=== PATIENT | male | born 1950 | race Caucasian/White ===

== ENCOUNTER 2022-08-29 02:42 | Inpatient (IN) | payer MEDICARE ==
[~2022-08-29] VITALS: Ht 172.7 cm; Wt 82.1 kg
[2022-08-29] MEDS ORDERED: HALOPERIDOL LACTATE 5 MG/1 ML VIAL ONE (02:56)
[2022-08-29] MEDS ORDERED: LORAZEPAM 2 MG/1 ML VIAL ONE (02:56)
[2022-08-29] MEDS ORDERED: diphenhydrAMINE 50 MG/1 ML VIAL ONE (02:56)
[2022-08-29] MEDS ORDERED: POTASSIUM BICARBONATE/CIT AC 25 MEQ TABLET.EFF PO ONE (03:00)
[2022-08-29] MEDS ORDERED: LORAZEPAM 2 MG/1 ML VIAL IM ONE ×2 (03:00→13:45)
[2022-08-29] MEDS ORDERED: HALOPERIDOL LACTATE 5 MG/1 ML VIAL IM ONE (03:00)
[2022-08-29] MEDS ORDERED: diphenhydrAMINE 50 MG/1 ML VIAL IM ONE (03:00)
[2022-08-29] MEDS ORDERED: POTASSIUM BICARBONATE/CIT AC 25 MEQ TABLET.EFF ONE (03:05)
--- NOTE | 2022-08-29 03:09 | NUR ---
Patient is agitated and verbally abusive towards staff. MD notified.
--- NOTE | 2022-08-29 03:16 | NUR ---
Dr. Gil in room examing patient.
[2022-08-29 03:27] LABS: CREATININE 0.9 mg/dL (0.6-1.3)
[2022-08-29] MEDS ORDERED: ACET1TAB23 PO (03:30)
[2022-08-29] MEDS ORDERED: ALFU10TA PO (03:30)
--- NOTE | 2022-08-29 03:35 | NUR ---
Patient has been medically cleared by Dr Gil
--- NOTE | 2022-08-29 03:41 | NUR ---
Called [facility] and gave report to Alfredo JASSO.
[2022-08-29 04:00] VITALS: BP 154/78
--- NOTE | 2022-08-29 04:00 | NUR ---
Patient was transferred via gurney. Alfredo JASSO made aware of patient's arrival.
[2022-08-29] MEDS ORDERED: MAGNESIUM HYDROXIDE 30 ML LIQUID UDC PO PRN (04:45)
[2022-08-29] MEDS ORDERED: TEMAZEPAM 7.5 MG CAPSULE PO PRN (04:45)
[2022-08-29] MEDS ORDERED: BLOOD SUGAR DIAGNOSTIC 1 EACH STRIP VI ONE (04:45)
[2022-08-29] MEDS ORDERED: CLONAZEPAM 0.5 MG TABLET PO PRN (04:45)
[2022-08-29] MEDS ORDERED: ACETAMINOPHEN 325 MG TABLET PO PRN (05:00)
--- NOTE | 2022-08-29 05:00 | NUR ---
GPS: Admitted to unit earlier around 0400 a 72 yr.old male to be under the care of /Dr. Dobbins DATA ANALYTICS SPECIALIST. Pt.is on a 72 hour hold for GD/DTO. He was agitated,aggressive,labile and delusional,per hold. Pt.received IM's at the E.R. for such behavior. When arrived on the unit pt.was much calmer and able to follow simple directions although still somewhat uncooperative and unable to participate during interview process. Body check done/personal belongings list inventoried. Unit rules explained. Pt's rights handbook/advisement given. Safe environment was provided. Re-directed and re-assured prn. Will monitor behavior.
[2022-08-29] MEDS ORDERED: buPROPion 100 MG TABLET PO SCH (10:15)
[2022-08-29] MEDS ORDERED: DIVALPROEX 125 MG TABLET.DR PO SCH (10:15)
[2022-08-29] MEDS: DIVALPROEX SPRINKLE 125 MG CAP.SPRINK PO SCH ×3 (10:30→21:13)
[2022-08-29] MEDS ORDERED: hydrALAZINE HCL 25 MG TABLET PO PRN (10:45)
[2022-08-29] MEDS ORDERED: ACETAMINOPHEN/CODEINE 300-30 MG TABLET PO SCH (12:00)
[2022-08-29] MEDS ORDERED: OLANZAPINE 10 MG VIAL IM ONE (13:45)
[2022-08-29 14:15] VITALS: BP 145/77
--- NOTE | 2022-08-29 14:34 | NUR ---
Patient became agitated, aggressive, striking out at others, combative, yelling and threatening physical harm to others and environment which could lead to injury. Psychiatrist was called and ordered Zyprexa 2.5 mg IM and Ativan 1 mg IM. Security was called and six people were necessary to administer medication, but no force applied. Reassurance given. Fall and safety precautions implemented.
[2022-08-29 15:52] VITALS: BP 122/79
--- NOTE | 2022-08-29 19:04 | NUR ---
Pt is labile, easily irritable, guarded, uncooperative and grandiose effect. Pt is argumentative with staff and other patients. Pt was throwing roommates belongings on the floor and eating other patients food. Pt snaps fingers at staff when he needs something and calls staff members stupid.Pt was making derogatory comments toward staff "are you stupid?" "you stupid nigger". Reassurance and redirected given. Pt is not compliant with medication and uncooperative with care. safety measures put in place . Continue to monitor for safety and for behavioral escalation.
[2022-08-29 20:08] VITALS: BP 136/64
[2022-08-29] MEDS: ALFUZOSIN HCL 10 MG TAB.SR.24H PO SCH ×2 (21:00→21:13)
[2022-08-29] MEDS ORDERED: OLANZAPINE 2.5 MG TABLET PO SCH (21:00)
[2022-08-29] MEDS: OLANZAPINE 2.5 MG TABLET PO SCH ×2 (21:00→21:13)
--- NOTE | 2022-08-29 21:21 | NUR ---
Patient refused to take 2100 hour scheduled meds. After repeated attempts of their purpose and importance, pt still refused, stating for me to "get the F out of here!" became labile and verbally aggressive/abusive using foul language and refused to listen/be educated. Will continue monitor.
[2022-08-30] MEDS: OLANZAPINE 2.5 MG TABLET PO SCH ×2 (08:50→20:58)
[2022-08-30] MEDS: DIVALPROEX SPRINKLE 125 MG CAP.SPRINK PO SCH ×2 (08:50→20:57)
--- NOTE | 2022-08-30 09:59 | NUR ---
MERLENE Initial Discharge Note: Pt currently resides at [address] [place] [address] ([phone]). Pt stated he is alone and has no family. It is unclear if pt will return home alone. Pt is currently refusing to discuss his discharge plan. MERLENE will continue to work with pt and MD to ensure a safe and proper discharge plan.
[2022-08-30] MEDS: MAG HYDROX/AL HYDROX/SIMETH 30 ML LIQUID UDC PO PRN ×2 (11:34→16:57)
--- NOTE | 2022-08-30 14:00 | NUR ---
Gps/Bowling Pin Refinisher- Demanding he needs to have omeprazole po, claimed his stomach very acidic, was iven mylanta 30 ml,po earlier , claimed it helps but not a whole lot. Requesting omeprazole, Dr Lundy was called , informed, order received., explained to patient protonix 40 mg po order received, patient agreed to take
[2022-08-30] MEDS: PANTOPRAZOLE SODIUM 40 MG TABLET.DR PO SCH (14:29)
[2022-08-30] MEDS: ALFUZOSIN HCL 10 MG TAB.SR.24H PO SCH (20:57)
--- NOTE | 2022-08-31 05:21 | NUR ---
Pt is uncooperative with nursing care and not compliant with medications. when educated on the importance of taking his medications pt got agitated and argumentative. Reassurance and redirected. Pt got up in front of bathroom mirror and started yelling, when asked if he was ok pt stated. "leave me alone and get out of my room". Pt calmed down and went back to bed.safety measures put in place . Continue to monitor for safety and behavioral escalation.
[2022-08-31] MEDS: PANTOPRAZOLE SODIUM 40 MG TABLET.DR PO SCH (06:26)
[2022-08-31] MEDS: OLANZAPINE 2.5 MG TABLET PO SCH ×2 (08:46→21:00)
[2022-08-31] MEDS: DIVALPROEX SPRINKLE 125 MG CAP.SPRINK PO SCH ×2 (08:46→21:00)
--- NOTE | 2022-08-31 12:24 | NUR ---
GPS: Nursing Notes: Destructive Behavior To Others: Patient is awake and responding to his name, impaired judgment, believes that he is leaving today, AWOL risk, refusing to take his medications, stated "There is nothing wrong with me..I am healthy..", refusing to participate in therapeutic groups, gets easily irritable when question by staff, unable to formulate a viable plan for self care, no aggressive behavior noted, continue to monitor for safety, continue with treatment plan.
[2022-08-31] MEDS: ALFUZOSIN HCL 10 MG TAB.SR.24H PO SCH (21:00)
--- NOTE | 2022-09-01 02:13 | NUR ---
Received patient pacing up and down in the martínez. The patient refused VS and refused to take any medications. He is acting edgy and borderline aggressive. This patient was angry with the CARCASS WASHER and labile. Safety Stratiges are in place and continuing to monitor for behavior escalation and compliance. Paranoid statements noted. Sleep hours have been poor so far.
[2022-09-01] MEDS: PANTOPRAZOLE SODIUM 40 MG TABLET.DR PO SCH ×2 (06:32→07:45)
[2022-09-01] MEDS: DIVALPROEX SPRINKLE 125 MG CAP.SPRINK PO SCH ×2 (08:22→20:31)
[2022-09-01] MEDS: OLANZAPINE 2.5 MG TABLET PO SCH ×2 (08:22→20:31)
--- NOTE | 2022-09-01 10:04 | NUR ---
GPS: Nursing Notes: Riese Hearing Filed: Staff served patient with copy of Riese petition hearing. Explained Riese hearing to the patient, but got angry and throw the copy on the floor. Shouting "The doctor said no injections... I do not accept that..". Staff faxed R[place] petition to courts at . Placed Riese petition in psych section of chart. Also, staff notified the courts via [facility] portal regarding Riese petition.
--- NOTE | 2022-09-01 10:59 | NUR ---
GPS: Nursing Notes: Destructive Behavior To Others: Patient is awake and responding to his name, gets easily angry when redirected, poor anger management, refusing his psych. medications, believes that there is nothing wrong with him, when staff served him with copy of Riese petition, he got angry and shouted "The doctor said no injections..." Throw the Riese petition on the floor, unable to formulate a viable plan for self care, continue to monitor for safety, continue with treatment plan.
[2022-09-01] MEDS: ALFUZOSIN HCL 10 MG TAB.SR.24H PO SCH (20:31)
--- NOTE | 2022-09-01 23:34 | NUR ---
Patient refused medications and refused to have VS taken. Pacing up and down the martínez most of the night so far, responding to internal stimuli. Safety Stratiges are in place. Continuing to monitor this patient for labile moods, behavior escalation and compliance.
--- NOTE | 2022-09-02 05:13 | NUR ---
On several occasions during night, the patient was seen and heard responding to internal stimuli. Very animated at times. These episodes seem to be getting more frequent and louder. Poor sleep noted. This patient spent most of the night pacing the halls. Multiple attempts to provided a shower or medications were refused. Safety Stratiges are in place and continuing to monitor for impulsive behavior outbursts.
[2022-09-02] MEDS: PANTOPRAZOLE SODIUM 40 MG TABLET.DR PO SCH (06:02)
[2022-09-02] MEDS: OLANZAPINE 2.5 MG TABLET PO SCH ×2 (08:23→20:42)
[2022-09-02] MEDS: DIVALPROEX SPRINKLE 125 MG CAP.SPRINK PO SCH ×2 (08:23→20:41)
--- NOTE | 2022-09-02 11:28 | NUR ---
GPS: Nursing Notes: Destructive Behavior To Others: Patient is awake and responding to his name, continue to refuse his psych. medications, argumentative with Anival Graves NP, stated "You told me... I am leaving today.. Now..", gets easily irritable when redirected, stated "I am normal... There is nothing wrong with me..", refusing his medications, unable to formulate a viable plan for self care, continue to monitor for safety, continue with treatment plan.
[2022-09-02] MEDS: ALFUZOSIN HCL 10 MG TAB.SR.24H PO SCH (20:41)
[2022-09-03] MEDS: MAG HYDROX/AL HYDROX/SIMETH 30 ML LIQUID UDC PO PRN (01:25)
[2022-09-03] MEDS: PANTOPRAZOLE SODIUM 40 MG TABLET.DR PO SCH ×2 (06:44→07:26)
[2022-09-03] MEDS: OLANZAPINE 2.5 MG TABLET PO SCH ×2 (08:41→20:46)
[2022-09-03] MEDS: DIVALPROEX SPRINKLE 125 MG CAP.SPRINK PO SCH ×2 (08:41→20:45)
[2022-09-03] MEDS ORDERED: HALOPERIDOL LACTATE 5 MG/1 ML VIAL IM PRN (13:15)
--- NOTE | 2022-09-03 14:30 | NUR ---
Patient is riesed. Haldol 0.5 mg IM will be given, if patient refuses Zyprexa 2.5 mg PO BID.
[2022-09-03] MEDS: ALFUZOSIN HCL 10 MG TAB.SR.24H PO SCH (20:46)
--- NOTE | 2022-09-04 03:44 | NUR ---
GPS NOTES: Received in his room talking to himself, A&0x2, patient is labile. Patient refused oral Zypexa meds, patient turns aggressive and yelling at staff when informed that medication will be given via IM, security and 2 staff necessary to administer the HALDOL medication via IM safely. Tolerated well, patient sleeping intermittently this shift, no distress noted. Patient at some point wakes up, went to nursing station angry and yells at staff, set boundaries to patients behavior. All safety strategies in placed.
[2022-09-04] MEDS: PANTOPRAZOLE SODIUM 40 MG TABLET.DR PO SCH (06:07)
[2022-09-04] MEDS: OLANZAPINE 2.5 MG TABLET PO SCH ×2 (08:48→20:29)
[2022-09-04] MEDS: DIVALPROEX SPRINKLE 125 MG CAP.SPRINK PO SCH ×2 (08:48→20:28)
[2022-09-04] MEDS ORDERED: HALOPERIDOL LACTATE 5 MG/1 ML VIAL IM PRN (09:00)
--- NOTE | 2022-09-04 17:29 | NUR ---
Receive pt in room responding to internal stimuli. Pt is labile, easily irritable and argumentative when he does not get his way. Pt refused oral Zypexa medication. Pt is riesed and when informed that if he refuses Zyprexa , he gets a Haldol IM. Pt started yelling at staff and stated " i will not take anything and you can not give me an injection that is illegal and I will laura you you dumb bitch". Education provided on the importance of being compliant with medications. 4 staff necessary to administer the HALDOL medication via IM safely no force used. Tolerated well, no distress noted. Safety strategies in placed. Reassurance provided. Continue to monitor for safety and behavioral escalation . Continue with treatment plan.
[2022-09-04] MEDS: ALFUZOSIN HCL 10 MG TAB.SR.24H PO SCH (20:28)
--- NOTE | 2022-09-05 05:05 | NUR ---
GPS NOTES: Patient agrees to take his PO medications at this time, still presents with irritable mood, complaining about he was given IM shot "illegally" and causing him an adverse effect. Educated patient on the adverse effect of the medications. He is noted to be sleeping alot this shift. No distress noted. All safety strategies in placed.
[2022-09-05] MEDS: PANTOPRAZOLE SODIUM 40 MG TABLET.DR PO SCH (06:17)
[2022-09-05] MEDS: OLANZAPINE 2.5 MG TABLET PO SCH ×2 (08:46→20:23)
[2022-09-05] MEDS: DIVALPROEX SPRINKLE 125 MG CAP.SPRINK PO SCH ×3 (08:46→20:46)
--- NOTE | 2022-09-05 15:40 | NUR ---
Gps/Core Cutter And Reamer- Patient claimed he is supposed to leave today, informed patient there's no order for discharge, needed to talk to his Psychiatrist in am. Compliant with routine am meds.this am. but noted irritability , argumentative this pm, requesting to call his Psychiatrist right now that there will be no Psych. meds anymore. Instructed patient the need to talk to [facility] Psychiatrist , in am, came in rushing in the Nursing station pointing his finger at the staff as he was loud, reitirating his demand to check his medications records," no more Psych. meds. per patient.
--- NOTE | 2022-09-05 16:09 | NUR ---
Gps/Electrical Journeyman- Called Pattern And Chain Maker to assist staff, for irrate patient yelling , loud, difficulty redirecting patient , demanding to call the Doctor to discontinue his Psych. medications, patient will no listen to explanation, redirected patient back to his room
--- NOTE | 2022-09-05 16:20 | NUR ---
GPS Nursing Notes: Patient pacing up and ricardo hallway, making demands, "I want to leave now, I dont want to take anymore psych medications, I told my Psychiatrist this morning". Patient getting close to nurses face, pointing his finger to nurses faces, patient also screaming at staff, "call my doctor Now!!!". refuses to follow directions, does no comprehend criteria for discharge, continued to make verbal demands. As need it po anxiety anxiety offered medication, but patient continue to refused, also encourage patient to go to his room to relax, but refused. Patient was redirected multiple time with success. Called Psychiatrist Ativan 1 mg IM ordered received. Will continue to monitor. Fall and safety precaution implemented, emotional support provided.
[2022-09-05] MEDS ORDERED: LORAZEPAM 2 MG/1 ML VIAL IM ONE (16:27)
[2022-09-05 16:32] VITALS: BP 145/86
--- NOTE | 2022-09-05 16:53 | NUR ---
Gps//Marine Photographer- Patient requesting to call Thep MACHINE WORKER again to tell him that " mo more Psych med. for javier , informed patient to talk to Psychiatrist in am. but demanding to have him call again to let him know about his request.
[2022-09-05] MEDS ORDERED: HALOPERIDOL LACTATE 5 MG/1 ML VIAL IM PRN (17:09)
[2022-09-05] MEDS: BENZTROPINE MESYLATE 1 MG TABLET PO SCH ×2 (20:23→20:45)
[2022-09-05] MEDS: ALFUZOSIN HCL 10 MG TAB.SR.24H PO SCH ×2 (20:23→20:46)
[2022-09-05] MEDS ORDERED: BENZTROPINE MESYLATE 2 MG/2 ML AMPUL IM PRN (21:00)
[2022-09-06] MEDS: PANTOPRAZOLE SODIUM 40 MG TABLET.DR PO SCH (06:05)
--- NOTE | 2022-09-06 06:09 | NUR ---
GPS NOTES: Patient remains argumentative when it comes to compliance w/ his psych medication. He states that there is a letter from court that states he don't need to take any psych medications. Remind patient that he is on reised, as per court order. Patient is still with episode of anger and outburst when being educated on the importance of med-compliance. Patient agrees to take Zyprexa and Cogentin, refused Depakote. Patient sleeps better this shift. No distress noted. Frequent rounding for safety observed.
[2022-09-06] MEDS: DIVALPROEX SPRINKLE 125 MG CAP.SPRINK PO SCH ×2 (08:58→20:55)
[2022-09-06] MEDS: OLANZAPINE 2.5 MG TABLET PO SCH (08:58)
[2022-09-06] MEDS: BENZTROPINE MESYLATE 1 MG TABLET PO SCH ×2 (08:58→20:54)
[2022-09-06] MEDS ORDERED: OLANZAPINE 10 MG VIAL IM PRN (10:45)
--- NOTE | 2022-09-06 13:52 | NUR ---
Remains up in his winnie- chair for safety , fed self independently , yells from time ,compliant with medication .
[2022-09-06] MEDS: OLANZAPINE 5 MG TABLET PO SCH (20:48)
[2022-09-06] MEDS: ALFUZOSIN HCL 10 MG TAB.SR.24H PO SCH (20:55)
--- NOTE | 2022-09-07 04:16 | NUR ---
Received in room sitting talking to self. Pt is labile, easily irritable, uncooperative with care. Pt is argumentative at times when medications are given. Pt is seductive with medications and wont take all of his medications. Reassurance and redirected. Pt did not slept only 30 minutes and was pacing in his room for most of the night, going in and out of bathroom and constantly washing his hands. No aggressive behavior noted on this shift. safety measures put in place . Continue to monitor for safety and for behavioral escalation. Addendum: 09/07/22 at 0610 by JOSE LUIS WING LVN pt slept for 1 hour not 30 minutes
[2022-09-07] MEDS: PANTOPRAZOLE SODIUM 40 MG TABLET.DR PO SCH (06:01)
[2022-09-07] MEDS: OLANZAPINE 5 MG TABLET PO SCH ×2 (08:13→20:40)
[2022-09-07] MEDS: BENZTROPINE MESYLATE 1 MG TABLET PO SCH ×2 (08:14→20:40)
[2022-09-07] MEDS: DIVALPROEX SPRINKLE 125 MG CAP.SPRINK PO SCH ×2 (08:14→21:00)
--- NOTE | 2022-09-07 15:10 | NUR ---
Received patient stay in his room most of time , refused to attend in group activity , get irritable when care provided, argumentative when psychiatrist attempted to talk to him. compliant with medication ,will continue same treatment plan.
[2022-09-07] MEDS: ALFUZOSIN HCL 10 MG TAB.SR.24H PO SCH (21:00)
--- NOTE | 2022-09-08 05:01 | NUR ---
Pt seems more calm upon approach. is more compliant with medications but selective on what he takes. Pt did not slept and pace up an down the hallway , his room and the dinning room. PRN for sleeping offered but refused. Reassurance provided , safety measures in place. continue to monitor for safety, continue with treatment plan.
[2022-09-08] MEDS: PANTOPRAZOLE SODIUM 40 MG TABLET.DR PO SCH (06:03)
[2022-09-08] MEDS: OLANZAPINE 5 MG TABLET PO SCH ×2 (08:37→20:54)
[2022-09-08] MEDS: DIVALPROEX SPRINKLE 125 MG CAP.SPRINK PO SCH ×2 (08:37→21:00)
[2022-09-08] MEDS: BENZTROPINE MESYLATE 1 MG TABLET PO SCH ×2 (08:37→20:54)
--- NOTE | 2022-09-08 16:10 | NUR ---
patient stay in his room most of time , refused to attend in group activity , get irritable when care provided, argumentative when psychiatrist attempted to talk to him.poor insight and poor judgement compliant with medication ,will continue same treatment plan.
[2022-09-08] MEDS: ALFUZOSIN HCL 10 MG TAB.SR.24H PO SCH (21:00)
--- NOTE | 2022-09-09 03:14 | NUR ---
received pt last night ; pt appears to be pacing most of the time; took some meds only; education given; pt rested for a while then found to be awake and pacing in the hallway; rounding done constantly and will continue to monitor.
[2022-09-09] MEDS: PANTOPRAZOLE SODIUM 40 MG TABLET.DR PO SCH (06:02)
--- NOTE | 2022-09-09 07:00 | NUR ---
GPS Nursing noted: Patient is in his room, with no S/S of discomforts, flat affect. withdrawn. Fall and safety precautions. Will continue to monitor.
[2022-09-09] MEDS: BENZTROPINE MESYLATE 1 MG TABLET PO SCH ×2 (08:55→20:33)
[2022-09-09] MEDS: DIVALPROEX SPRINKLE 125 MG CAP.SPRINK PO SCH ×2 (08:55→20:33)
[2022-09-09] MEDS: OLANZAPINE 5 MG TABLET PO SCH ×2 (08:55→20:33)
[2022-09-09] MEDS: ALFUZOSIN HCL 10 MG TAB.SR.24H PO SCH (20:34)
--- NOTE | 2022-09-09 20:34 | NUR ---
Even after re-educating pt of these medications purpose and importance, this pt still refused taking them. They are: Depakote and Uroxatral @ 2100 hours.
[2022-09-10] MEDS: PANTOPRAZOLE SODIUM 40 MG TABLET.DR PO SCH (07:05)
[2022-09-10] MEDS: BENZTROPINE MESYLATE 1 MG TABLET PO SCH (08:31)
[2022-09-10] MEDS: OLANZAPINE 5 MG TABLET PO SCH (08:31)
[2022-09-10] MEDS: DIVALPROEX SPRINKLE 125 MG CAP.SPRINK PO SCH (08:33)
[2022-09-10 10:22] VITALS: BP 136/74
--- NOTE | 2022-09-10 10:35 | NUR ---
SW Discharge Note: Pt will be discharged with a bus pass at 11AM. MERLENE and DNP, Dr. Graves offered senior living facilities which pt refused. Pt is alert and oriented x4. Pt does not have any family contact. Pt stated he would like to be discharged on his own by bus pass to go get his car from [facility] [address] [place] [address] ([phone]). MERLENE spoke with Tea from parking enforcement at [facility] who stated pts car is there. Pt is aware and agreeable with discharge plan. Pt denies any suicidal or homicidal ideation. SW offered resources such as [facility] located at [facility] [place] [address] ([phone]) via teletherapy; [facility] for primary doctor located at [address], [address], [place] [address] ([phone]); [facility] [address], [address], [place] [address] and more. Pt refused all resources. Pt stated to this MERLENE and Dr. Graves that he is perfectly fine, does not need a psychiatrist and refused to provide pharmacy details. Pt presents with calm mood and congruent affect.
--- NOTE | 2022-09-10 11:40 | NUR ---
Pt will be discharged with a bus pass at 11AM. Patient A/O x 4, denies SI/HI/VH/AH, or pain. V/S WNLS, medication compliant. Patient belonging and valuable were accounted, patient signs belonging and valuable list. Medication All discharge instructions given, educated patient on the importance of taking his medications as ordered and following up with outside .No SOB.
== END 2022-09-10 11:15 | disposition home or self-care (01) | DRG 885 ==
LOC: ER 02:52 → GPS 03:20
PROVIDERS: ADMIT Nurse Practitioner Psychiatric/Mental Health; ATTEND Internal Medicine
DX: F29 Unspecified psychosis not due to a substance or known physiological condition (principal); E87.0 Hyperosmolality and hypernatremia; N40.0 Benign prostatic hyperplasia without lower urinary tract symptoms; E66.9 Obesity, unspecified; Z68.27 Body mass index [BMI] 27.0-27.9, adult; R25.1 Tremor, unspecified; F25.9 Schizoaffective disorder, unspecified; Z88.8 Allergy status to other drugs, medicaments and biological substances; Z91.199 Patient's noncompliance with other medical treatment and regimen due to unspecified reason
CPT/HCPCS: 36415; A4663; J1200; J1630; J2060; J2358; J8499